=== PATIENT | female | born 1945 | race Caucasian/White ===

== ENCOUNTER 2018-01-18 10:40 | Emergency (ER) | payer MEDICARE, BC ==
--- NOTE | 2018-01-18 10:53 | EDM.PDOC ---
ED HPI GENERAL MEDICAL PROBLEM - General Chief Complaint: General Stated Complaint: DIZZY Time Seen by Provider: 01/18/18 10:42 Source of Information: Reports: Patient, RN, RN Notes Reviewed History Limitations: Reports: No Limitations - History of Present Illness INITIAL COMMENTS - FREE TEXT/NARRATIVE: Patient presents the emergency room at [facility] complaining of dizziness that started about an hour prior to presentation. The patient [place]. The patient states she currently feels somewhat lightheaded. The patient does have a history of vertigo. The last episode was October 2017. At that time the patient was found to have elevated blood pressure, therefore she was started on a new blood pressure medication. The patient states that her blood pressure has been on the lower side since starting the new medication. The patient has been seen by physical therapy in the past for a history of vertigo. The patient states she was recently seen last month by physical therapy. The patient states that she is also under a considerable amount of stress. The patient states that she has sold her home in [place] and is moving to the [facility] to be close family. The patient states that this move has been very stressful for her. The patient states that she thinks she is trying to drink enough fluid. The patient denies any recent falls. The patient denies any nausea or vomiting. The patient states she does feel steady on her feet. The patient wonders if she has some sort of sinus involvement as she feels a little bit of pressure around the ethmoid sinuses. The patient denies any chest pain or shortness of breath. Otherwise no other concerns. Onset: Today - Related Data Allergies Allergy/AdvReac Type Severity Reaction Status Date / Time amoxicillin Allergy Hives Verified 01/18/18 11:11 cefdinir Allergy Hives Verified 01/18/18 11:11 clarithromycin Allergy Nausea Verified 01/18/18 11:11 codeine Allergy Other Verified 01/18/18 11:11 latex Allergy Other Verified 01/18/18 11:11 Sulfa (Sulfonamide Allergy Hives Verified 01/18/18 11:11 Antibiotics) Home Meds: Home Meds Aspirin [Ecotrin] 81 mg PO DAILY 01/18/18 [History] Calcium Carbonate/Vitamin D3 [Calcium 600 + Vit D 200] 1 each PO BID 01/18/18 [ History] Cholecalciferol (Vitamin D3) [Vitamin D3] 2,000 unit PO DAILY 01/18/18 [History] Clobetasol [Clobetasol Propionate 0.05%] 45 gm TOP BID PRN 01/18/18 [History] Diazepam [Valium] 2 mg PO QID PRN 01/18/18 [History] Fluticasone Propionate [Flonase] 2 sprays INH DAILY 01/18/18 [History] Hydrochlorothiazide 12.5 mg PO DAILY 01/18/18 [History] Hydrocortisone [Hydrocortisone 2.5% Oint] 20 gm RECTAL ASDIRECTED PRN 01/18/18 [ History] Lisinopril 40 mg PO DAILY 01/18/18 [History] Loratadine [Claritin] 10 mg PO DAILY 01/18/18 [History] Multivitamin [Multivitamins] 1 each PO DAILY 01/18/18 [History] Sertraline [Zoloft] 150 mg PO DAILY 01/18/18 [History] Triamcinolone Acetonide [Kenalog 0.1% Crm] 0 gm TOP BID 01/18/18 [History] amLODIPine Besylate [Norvasc] 2.5 mg PO DAILY 01/18/18 [History] atorvaSTATin [Lipitor] 40 mg PO BEDTIME 01/18/18 [History] ED ROS GENERAL - Review of Systems Review Of Systems: See Below Constitutional: Denies: Fever, Chills, Weakness HEENT: Reports: Sinus Problem (ethmoid) Respiratory: Denies: Shortness of Breath, Cough Cardiovascular: Reports: Lightheadedness. Denies: Chest Pain, Palpitations GI/Abdominal: Denies: Nausea, Vomiting Skin: Reports: No Symptoms Neurological: Reports: Dizziness. Denies: Headache, Numbness, Paresthesia, Tingling ED EXAM, GENERAL - Physical Exam Exam: See Below Exam Limited By: No Limitations General Appearance: Alert, No Apparent Distress Eye Exam: Bilateral Eye: EOMI, Normal Inspection, PERRL Ears: Normal External Exam, Normal Canal, Normal TMs Ear Exam: Bilateral Ear: TM normal Nose: Normal Inspection Throat/Mouth: Normal Inspection Head: Atraumatic, Normocephalic Neck: Supple Respiratory/Chest: No Respiratory Distress, Lungs Clear, Normal Breath Sounds Cardiovascular: Normal Peripheral Pulses, Regular Rate, Rhythm Peripheral Pulses: 2+: Radial (L), Radial (R) GI/Abdominal: Normal Bowel Sounds, Soft, Non-Tender Neurological: Alert, Oriented Skin Exam: Warm, Dry, Intact, Normal Color EKG INTERPRETATION EKG Date: 01/18/18 Time: 11:29 Rhythm: NSR Rate (Beats/Min): 60 [place]: Normal P-Wave: Present QRS: Normal ST-T: Normal QT: Normal [place]/PQ Interval: 0.18 Comparison: NA - No Prior EKG EKG Interpretation Comments: 1. Sinus Rhythm 2. Nonspecific T-wave abnormality Course - Vital Signs Last Recorded V/S: Last Vital Signs Temp 36.1 C 01/18/18 10:45 Pulse 76 01/18/18 10:45 Resp 18 01/18/18 10:45 BP 128/74 01/18/18 10:45 Pulse Ox 93 L 01/18/18 10:45 - Orders/Labs/Meds Orders: Active Orders 24 hr Category Date Time Status EKG 12 Lead [EKG Documentation Completion] [RC] STAT Care 01/18/18 11:01 Active UA W/MICROSCOPIC [URIN] Stat Lab 01/18/18 11:41 Results Labs: Laboratory Tests 01/18/18 01/18/18 01/18/18 Range/Units 11:15 11:15 11:41 WBC 6.4 (4.0-10.0) x10^3/uL RBC 4.44 (4.00-5.50) x10^6/uL Hgb 13.6 (12.0-16.0) g/dL Hct 41.0 (33.0-47.0) % MCV 92.3 (78.0-93.0) fL MCH 30.6 (26.0-32.0) pg MCHC 33.2 (32.0-36.0) g/dL RDW Coeff of Ehsan 12.6 (10.0-15.0) % Plt Count 244 (130-400) x10^3/uL Neut % (Auto) 54.4 (50.0-80.0) % Lymph % (Auto) 31.9 (25.0-50.0) % [place] % (Auto) 9.7 (2.0-11.0) % Eos % (Auto) 3.5 (0.0-4.0) % Baso % (Auto) 0.5 (0.2-1.2) % Sodium 141 (136-145) mmol/L Potassium 4.0 (3.5-5.1) mmol/L Chloride 106 (98-107) mmol/L Carbon Dioxide 25 (21-32) mmol/L BUN 19 H (7-18) mg/dL Creatinine 0.8 (0.55-1.02) mg/dL Est Cr Clr Drug Dosing TNP Estimated GFR (MDRD) > 60 Glucose 92 (74-106) mg/dL Calcium 9.4 (8.5-10.1) mg/dL Urine Color Yellow (YELLOW) Urine Appearance Clear (CLEAR) Urine pH 7.0 (5.0-8.0) Ur Specific [place] 1.015 Urine Protein Negative (NEGATIVE) mg/dL Urine Glucose (UA) Negative (NEGATIVE) mg/dL Urine Ketones Negative (NEGATIVE) mg/dL Urine Occult Blood Negative (NEGATIVE) Urine Nitrite Negative (NEGATIVE) Urine Bilirubin Negative (NEGATIVE) Urine Urobilinogen 0.2 (0.2) EU/dL Ur Leukocyte Esterase Trace H (NEGATIVE) Departure - Departure Time of Disposition: 11:50 Disposition: Home, Self-Care 01 Condition: Good Clinical Impression: Lightheadedness, Dizziness - Discharge Information Instructions: Dizziness Referrals: Sonia Riddle MD [Primary Care Provider] - Forms: ED Department Discharge Additional Instructions: 1. Stay very well hydrated and rest 2. Recommend taking some time for yourself and relax 3. You may have a sinus infection starting given the discomfort between the eyes 4. No emergency found today, EKG and blood/urine was normal 5. It is possible this could be another vertigo issue and might need more testing 6. See your Primary as symptoms warrant 7. If you do not feel safe driving, may be stay in town today/tonight to rest 8. Call with any questions/concerns - Problem List Review Problem List Initiated/Reviewed/Updated: Yes - My Orders Last 24 Hours: My Active Orders 01/18/18 11:01 EKG 12 Lead [EKG Documentation Completion] [RC] STAT 01/18/18 11:41 UA W/MICROSCOPIC [URIN] Stat - Assessment/Plan Last 24 Hours: My Active Orders 01/18/18 11:01 EKG 12 Lead [EKG Documentation Completion] [RC] STAT 01/18/18 11:41 UA W/MICROSCOPIC [URIN] Stat Plan: Labs and EKG are normal today. It could be possible that this is just an exacerbation of chronic problem. No emergency found regarding the patient's dizziness and/or lightheadedness. Patient could certainly benefit from more water intake. Otherwise there is no medical necessity for admission. Discussed labs and EKG with patient. Patient verbalized understanding.
[2018-01-18 11:33] LABS: CHLORIDE,CL 106 mmol/L (98-107); SODIUM,NA 141 mmol/L (136-145)
== END 2018-01-18 11:56 | disposition home or self-care (01) ==
LOC: VM.ED 10:40
DX: R42 Dizziness and giddiness (principal); Z88.1 Allergy status to other antibiotic agents; Z88.5 Allergy status to narcotic agent; Z88.2 Allergy status to sulfonamides; Z91.040 Latex allergy status; Z79.82 Long term (current) use of aspirin; Z79.899 Other long term (current) drug therapy
CPT/HCPCS: 36415; 80048; 81001; 85025; 93005; 99284